=== PATIENT | female | born 2000 | race Caucasian/White ===

== ENCOUNTER 2019-08-02 21:55 | Inpatient (IN) ==
[~2019-08-02 21:55] MED LIST: CeFAZolin Premix DUPLEX 2,000 MG/50 ML BAG IVPB ONE; Famotidine 20 MG/2 ML VIAL IVP ONE; Metoclopramide 10 MG/2 ML VIAL IVP ONE; Oxytocin 20 units/ LR 1000 mL 20 UNIT/1,000 ML BAG IVC ONE; Ringers Solution, Lactated 1,000 ML IVC ONE; Ringers Solution, Lactated 1,000 ML ONE
[2019-08-02] MEDS ORDERED: Ringers Solution, Lactated 1,000 ML IVC SCH (22:00)
[2019-08-02] MEDS ORDERED: Oxytocin 20 units/ LR 1000 mL 20 UNIT/1,000 ML BAG IVC SCH (22:00)
[2019-08-02] MEDS ORDERED: *HR* Propofol 200 MG/20 ML VIAL IVP ONE (22:13)
[2019-08-02] MEDS ORDERED: *HR* Oxytocin 10 UNIT/ML VIAL IM ONE ×2 (22:13→22:22)
[2019-08-02] MEDS ORDERED: Lidocaine -MPF 2% 5 ML VIAL ONE (22:13)
[2019-08-02] MEDS ORDERED: *HR* HYDROMORPHONE 2 MG/ML VIAL ONE ×2 (22:13→22:49)
[2019-08-02] MEDS ORDERED: *HR* Succinylcholine 200 MG/10 ML VIAL IVP ONE (22:13)
[2019-08-02 22:20] LABS: Basophils % 0.3 %; Eosinophils # 0.1 K/mcL (0.0-0.6); Eosinophils % 0.5 %; Hematocrit 34.4 % (35.3-44.9); Hemoglobin 11.8 g/dL (11.5-15.4); Lymphocytes # 1.5 K/mcL (0.6-4.6); Lymphocytes % 10.6 %; Mean Corpuscular HGB Conc 34.3 g/dL (31.6-35.5); Mean Corpuscular Hemoglobin 31.4 pg (28.0-33.3); Mean Corpuscular Volume 91.5 fL (83.0-100.0); Mean Platelet Volume 10.4 fL (9.4-12.4); Monocytes % 6.9 %; Neutrophils # 11.7 K/mcL (1.6-8.9); Platelet Count 315 K/mcL (140-400); Red Blood Count 3.76 M/mcL (3.82-4.97); Red Cell Distribution Width 13.4 % (11.5-14.5); Segmented Neutrophils % 80.7 %; White Blood Count 14.6 K/mcL (4.3-11.1)
[2019-08-02] MEDS ORDERED: *HR* Phenylephrine 10 MG/ML VIAL ONE (22:20)
[2019-08-02] MEDS ORDERED: Ringers Solution, Lactated 1,000 ML ONE (22:22)
[2019-08-02] MEDS ORDERED: Dexamethasone 4 MG/ML VIAL ONE (22:24)
[2019-08-02] MEDS ORDERED: Ondansetron 4 MG/2 ML VIAL ONE (22:24)
[2019-08-02] MEDS ORDERED: Ketorolac 30 MG/ML VIAL ONE (22:42)
[2019-08-02 22:43] LABS: Amphetamine Screen,Urine Negative ng/mL (Cutoff=1000); Barbiturate Screen,Urine Negative ng/mL (Cutoff=200); Benzodiazepines Screen,Urine Negative ng/mL (Cutoff=200); Cannabinoid Screen,Urine Negative ng/mL (Cutoff = 50); Cocaine Screen,Urine Negative ng/mL (Cutoff= 300); Opiate Screen,Urine Negative ng/mL (Cutoff=300); Phencyclidine Screen,Urine Negative ng/mL (Cutoff=25)
[2019-08-02] MEDS ORDERED: *HR* HYDROmorphone 20 MG/20 ML PCA IVC PRN (23:00)
[2019-08-02] MEDS ORDERED: *HR* Meperidine 25 MG/ML SYRINGE IVP PRN (23:02)
[2019-08-02] MEDS ORDERED: *HR* Promethazine 25 MG/ML VIAL IVP PRN (23:02)
[2019-08-02] MEDS ORDERED: *HR* HYDROmorphone (PF) 1 MG/ML SYRINGE IVP PRN (23:02)
[2019-08-02] MEDS ORDERED: Acetaminophen IV 1,000 MG/100 ML INFUS..BTL IVPB ONE (23:02)
[2019-08-03 00:33] LABS: Rubella IgG Antibody POSITIVE (POSITIVE); Varicella Zoster IgG Antibody Positive
[2019-08-03] MEDS ORDERED: Ringers Solution, Lactated 1,000 ML IVC SCH (01:40)
[2019-08-03] MEDS ORDERED: Sennosides 8.6 MG TABLET PO PRN (01:40)
[2019-08-03] MEDS ORDERED: *HR* HYDROmorphone 20 MG/20 ML PCA IVC PRN (01:40)
[2019-08-03] MEDS ORDERED: Oxytocin 20 units/ LR 1000 mL 20 UNIT/1,000 ML BAG IVC SCH (01:40)
[2019-08-03] MEDS ORDERED: Metoclopramide 10 MG/2 ML VIAL IVP PRN (01:40)
[2019-08-03] MEDS ORDERED: Naloxone 0.4 MG/ML INJ IVP PRN (01:40)
[2019-08-03] MEDS ORDERED: Ondansetron 4 MG/2 ML VIAL IVP PRN (01:40)
[2019-08-03 03:26] LABS: Hepatitis B Surface Antigen Nonreactive (Nonreactive)
[2019-08-03 03:54] LABS: HIV-1&2 Antibody & p24 Ag Nonreactive (Nonreactive)
[2019-08-03] MEDS: *HR* OxyCODONE/APAP 5/325 TABLET PO PRN ×3 (09:58→20:08)
[2019-08-03] MEDS: Ibuprofen 600 MG TABLET PO PRN ×2 (09:58→16:42)
[2019-08-03] MEDS: metroNIDAZOLE 500 MG TABLET PO SCH ×3 (09:58→20:08)
[2019-08-03 10:42] LABS: Basophils % 0.2 %; Eosinophils % 0.1 %; Hematocrit 28.8 % (35.3-44.9); Immature Granulocytes % 0.9 % (0-4); Lymphocytes # 1.8 K/mcL (0.6-4.6); Lymphocytes % 8.8 %; Mean Corpuscular HGB Conc 33.3 g/dL (31.6-35.5); Mean Corpuscular Hemoglobin 31.5 pg (28.0-33.3); Mean Corpuscular Volume 94.4 fL (83.0-100.0); Mean Platelet Volume 10.6 fL (9.4-12.4); Monocytes # 1.7 K/mcL (0.0-1.3); Monocytes % 8.6 %; Neutrophils # 16.3 K/mcL (1.6-8.9); Platelet Count 274 K/mcL (140-400); Red Blood Count 3.05 M/mcL (3.82-4.97); Red Cell Distribution Width 13.8 % (11.5-14.5); Segmented Neutrophils % 81.4 %
[2019-08-03 10:43] LABS: Hemoglobin 9.6 g/dL (11.5-15.4)
[2019-08-03] MEDS: Prenatal Vit/FA 1 EACH TABLET PO SCH (13:01)
[2019-08-03] MEDS: Simethicone 80 MG TAB.CHEW PO PRN (13:02)
[2019-08-04] MEDS: *HR* OxyCODONE/APAP 5/325 TABLET PO PRN ×4 (02:33→18:18)
[2019-08-04 08:19] VITALS: BP 115/75
[2019-08-04] MEDS: Simethicone 80 MG TAB.CHEW PO PRN (08:50)
[2019-08-04] MEDS: metroNIDAZOLE 500 MG TABLET PO SCH ×2 (08:51→15:37)
[2019-08-04] MEDS: Prenatal Vit/FA 1 EACH TABLET PO SCH (08:52)
[2019-08-04] MEDS ORDERED: cephALEXin 500 MG CAPSULE PO SCH (09:00)
== END 2019-08-04 20:15 | disposition home or self-care (01) | DRG 540 ==
LOC: 1NENULAB → 1NENUOBS 08-03 01:12
PROVIDERS: ADMIT Advanced Practice Midwife; ATTEND Advanced Practice Midwife